=== PATIENT | female | born 1960 | race Caucasian/White ===

== ENCOUNTER 2019-11-08 17:23 | Emergency (ER) | payer BC ==
[2019-11-08 17:37] VITALS: BP 128/81
--- NOTE | 2019-11-08 17:55 | UC ---
Skin Complaint HPI - HPI Summary HPI Summary: 59-year-old female comes in with a chief complaint of infection in the left foot. Patient's had a sore on her left second toe for a long time. 3 days ago she picked at it and since then she's had redness and swelling starting in the left second toe spreading up into the distal foot. There has been some pus discharge from the left second toe. No fevers or chills no decreased sensation. Patient has no known history of MRSA. - History of Current Complaint Chief Complaint: UCSkin Time Seen by Provider: 11/08/19 17:43 Stated Complaint: SORE ON FOOT Pain Intensity: 4 - Allergy/Home Medications Allergies/Adverse Reactions: Allergies Allergy/AdvReac Type Severity Reaction Status Date / Time No Known Allergies Allergy Verified 11/08/19 17:40 Home Medications: Home Medications Ascorbic Acid [Vitamin C] 1 tab PO DAILY 11/08/19 [History Confirmed 11/08/19] Echinacea 1 tab PO DAILY 11/08/19 [History Confirmed 11/08/19] Enzymes,Digestive [Enzymatic Digestant] 1 tab PO DAILY 11/08/19 [History Confirmed 11/08/19] [place] Extract [[place]] 1 dose PO DAILY 11/08/19 [History Confirmed 11/08/19 ] [place]'s Wort Supplement 1 tab PO DAILY 11/08/19 [History Confirmed 11/08/19 ] Zyflamend Supplement 1 dose PO DAILY 11/08/19 [History Confirmed 11/08/19] PMH/Surg Hx/FS Hx/Imm Hx Previously Healthy: Yes - Surgical History Surgical History: Yes Surgery Procedure, Year, and Place: left arm facture repair. right knee - Family History Known Family History: Positive: Non-Contributory - Social History Alcohol Use: None Substance Use Type: None Smoking Status (MU): Never Smoked Tobacco Review of Systems All Other Systems Reviewed And Are Negative: Yes Constitutional: Positive: Negative Skin: Positive: Other - SEE HPI Eyes: Positive: Negative ENT: Positive: Negative Respiratory: Positive: Negative Cardiovascular: Positive: Negative Gastrointestinal: Positive: Negative Motor: Positive: Negative Neurovascular: Positive: Negative Musculoskeletal: Positive: Other: - SEE HPI Neurological: Positive: Negative Psychological: Positive: Negative Is Patient Immunocompromised?: No Physical Exam Triage Information Reviewed: Yes Appearance: Well-Appearing, No Pain Distress, Well-Nourished Vital Signs: Initial Vital Signs Temp 97.8 F 11/08/19 17:32 Pulse 81 11/08/19 17:32 Resp 18 11/08/19 17:32 BP 128/81 11/08/19 17:32 Pulse Ox 96 11/08/19 17:32 Vital Signs Reviewed: Yes Eye Exam: Normal Eyes: Positive: Conjunctiva Clear Neck: Positive: Supple Respiratory: Positive: No respiratory distress Musculoskeletal: Positive: Strength Intact, ROM Intact Neurological: Positive: Alert Psychological: Positive: Age Appropriate Behavior Skin: Positive: Other - Left second toe as 5 mm open wound on the dorsum of the distal toe just proximal to the toenail. There is some drainage from that which I cultured. There is no obvious fluctuant mass for incision and drainage. There is erythema of that toe and all the other toes and spreading proximally in the left foot almost to the ankle. Normal capillary refill normal range of motion there is edema in the area of erythema. Course/Dx - Course Course Of Treatment: I did take a wound culture at the site of the toe. To start Keflex 500 mg by mouth 4 times a day for 10 days. I let the patient know that if she got worse with spread of infection are she felt ill with fevers and chills and she needed to get further evaluation and care in the emergency department. - Diagnoses Provider Diagnosis: Cellulitis of left foot Discharge ED - Sign-Out/Discharge Documenting (check all that apply): Patient Departure All imaging exams completed and their final reports reviewed: No Studies - Discharge Plan Condition: Stable Disposition: HOME Prescriptions: Cephalexin CAP* [Keflex CAP*] 500 mg PO QID #40 cap Patient Education Materials: Cellulitis (ED) Referrals: [facility] [place] [facility] [Outside] Additional Instructions: FOLLOW UP WITH YOUR DOCTOR IF NOT COMPLETELY IMPROVED. GET REEVALUATED SOONER IF NOT IMPROVED OR WORSE; SPREAD OF INFECTION, YOU FEEL ILL, FEVER OR ANY QUESTIONS OR CONCERNS. - Billing Disposition and Condition Condition: STABLE Disposition: Home
--- NOTE | 2019-11-11 07:15 | UC ---
- Progress Note Progress Note: PROGRESS NOTE: LAB RESULTS:culture results show staph aureus positive MRSA negative. MDM:patient is being treated with Keflex for 10 days for infection on her toe. No change in treatment at this time. Bill Astorga MD Course/Dx - Diagnoses Provider Diagnoses: Cellulitis of left foot Discharge ED - Sign-Out/Discharge Documenting (check all that apply): Post-Discharge Follow Up All imaging exams completed and their final reports reviewed: No Studies - Discharge Plan Condition: Stable Disposition: HOME Prescriptions: Cephalexin CAP* [Keflex CAP*] 500 mg PO QID #40 cap Patient Education Materials: Cellulitis (ED) Referrals: [facility] [place] [facility] [Outside] Additional Instructions: FOLLOW UP WITH YOUR DOCTOR IF NOT COMPLETELY IMPROVED. GET REEVALUATED SOONER IF NOT IMPROVED OR WORSE; SPREAD OF INFECTION, YOU FEEL ILL, FEVER OR ANY QUESTIONS OR CONCERNS. - Billing Disposition and Condition Condition: STABLE Disposition: Home
== END 2019-11-08 18:07 | disposition home or self-care (01) ==
LOC: UCEAST 17:23
DX: L03.116 Cellulitis of left lower limb (principal)
CPT/HCPCS: 87070; 87205; 87640; 87641; 99202; G0463